=== PATIENT | male | born 1955 | race Caucasian/White ===

== ENCOUNTER 2024-09-15 01:00 | Emergency (ER) | payer SELFPAY ==
[~2024-09-15] VITALS: Ht 187.9 cm; Wt 99.8 kg
[2024-09-15] MEDS ORDERED: TICAGRELOR 90 MG TABLET PO ONE (01:05)
[2024-09-15] MEDS ORDERED: HEPARIN SODIUM 250 ML IV SCH (01:05)
[2024-09-15 01:19] LABS: HEMATOCRIT 48.2 % (42.0-52.0); MANUAL DIFF REFLEX YES; MEAN CELL VOLUME 93.6 fl (80.0-94.0); MEAN CORPUSCULAR HGB 32.2 pg (27.0-31.0); MEAN CORPUSCULAR HGB CONC 34.4 g/dl (33.0-37.0); MEAN PLATELET VOLUME 10.9 fl (9.6-12.3); PLATELET COUNT AUTOMATED 246 10*3/uL (130-400); RED BLOOD COUNT 5.15 10*6/uL (4.50-5.90); RED CELL DISTRI WIDTH 13.8 % (0-14.5); WHITE BLOOD COUNT 17.2 10*3/uL (4.8-10.8)
[2024-09-15 01:35] LABS: ALKALINE PHOSPHATASE 101 U/L (46-116); BUN 18 mg/dl (9-23); CHLORIDE 106 mmol/L (98-107); POTASSIUM 3.2 mmol/L (3.4-5.1); SGPT/ALT 20 U/L (5-49); TOTAL PROTEIN 7.2 gm/dL (6.0-8.0)
[2024-09-15 01:46] LABS: ATYPICAL LYMPHS 6 % (0-0); TOTAL CELLS COUNTED 100 #CELLS
[2024-09-15 01:47] LABS: PLATELET SUFFICIENCY NORMAL (NORMAL)
== END 2024-09-15 01:40 | disposition short-term general hospital (02) ==
LOC: ED 01:00
PROVIDERS: Internal Medicine
DX: I21.3 ST elevation (STEMI) myocardial infarction of unspecified site (principal); R11.0 Nausea; R06.02 Shortness of breath; R61 Generalized hyperhidrosis; I10 Essential (primary) hypertension

== ENCOUNTER 2025-10-17 10:50 | Emergency (ER) | payer MEDICARE, OTHER ==
[~2025-10-17] VITALS: Ht 190.5 cm; Wt 101.4 kg
[2025-10-17] MEDS ORDERED: IOHEXOL 350 MG/ML 100 ML VIAL IV ONE ×2 (11:10→11:32)
[2025-10-17] MEDS ORDERED: SODIUM CHLORIDE 0.9% 100 ML BAG IV ONE (11:10)
[2025-10-17 11:16] LABS: BASO # 0.1 10*3/uL (0.0-0.1); BASO % 0.8 % (0.0-1.0); EOS # 0.4 10*3/uL (0.0-0.4); EOS % 4.6 % (1.0-4.0); MEAN CELL VOLUME 91.8 fl (80.0-94.0); MEAN CORPUSCULAR HGB 30.7 pg (27.0-31.0); MEAN PLATELET VOLUME 10.8 fl (9.6-12.3); MONO # 0.7 10*3/uL (0.1-1.0); MONO % 8.2 % (3.0-9.0); NEUT # 5.6 10*3/uL (2.3-7.9); NEUT % 67.9 % (47.0-73.0); NUCLEATED RED BLOOD CELL 0.0 % (0.0-0.0); NUCLEATED RED BLOOD CELL 0.0 10*3/uL (0.0-0.0); PLATELET COUNT AUTOMATED 190 10*3/uL (130-400); RED CELL DISTRI WIDTH 14.2 % (0-14.5)
[2025-10-17 11:29] LABS: ACT PARTIAL THROMBO TIME 28.8 SECONDS (20.0-32.1)
[2025-10-17] MEDS ORDERED: SODIUM CHLORIDE 0.9% 100 ML IV ONE (11:32)
[2025-10-17 11:37] LABS: BUN 11 mg/dl (9-23); SGPT/ALT 18 U/L (5-49)
[2025-10-17] MEDS ORDERED: CLOPIDOGREL75 MG PO (12:10)
[2025-10-17] MEDS ORDERED: ATORVASTATIN CA80 M1 PO (12:10)
[2025-10-17] MEDS ORDERED: FEXOFENADINE H180 M1 PO (12:10)
[2025-10-17] MEDS ORDERED: DULOXETINE HCL60 MG PO (12:10)
[2025-10-17] MEDS ORDERED: DOXYCYCLINE HY100 M3 PO (12:10)
[2025-10-17] MEDS ORDERED: AMIODARONE HYD200 MG PO (12:11)
[2025-10-17] MEDS ORDERED: TAMSULOSIN HCL0.4 MG PO (12:11)
[2025-10-17] MEDS ORDERED: ASPIRIN ADULT L81 M2 PO (12:11)
[2025-10-17] MEDS ORDERED: ESCITALOPRAM OXA5 MG PO (12:11)
[2025-10-17] MEDS ORDERED: LEVETIRACETAM500 MG PO (12:11)
[2025-10-17] MEDS ORDERED: OMEPRAZOLE MAGN20 MG PO (12:12)
[2025-10-17 12:53] LABS: BILIRUBIN Negative (Negative); BLOOD Negative (Negative); CLARITY Clear (Clear); COLOR Yellow (Yellow); KETONE Negative (Negative); LEUKO ESTERASE Negative (Negative); NITRITE Negative (Negative); PH 6.5 (4.5-8.0); SPECIFIC GRAVITY >= 1.030 (1.001-1.030); UROBILINOGEN 1.0 E.U./dl (0.0-1.0)
[2025-10-17 13:10] LABS: MUCOUS 1+; RBC 0-2 rbc/hpf (0-2)
[2025-10-17 13:11] LABS: BACTERIA TRACE
[2025-10-17] MEDS ORDERED: Clopidogrel Hydrogen Sulfate 75 MG TAB PO ONE (13:40)
[2025-10-17] MEDS ORDERED: ASPIRIN ENTERIC COATED 81 MG TAB PO ONE (13:40)
[2025-10-17] MEDS ORDERED: POTASSIUM CHLORIDE IN WATER 100 ML IV SCH (14:00)
== END 2025-10-17 16:14 | disposition short-term general hospital (02) ==
LOC: ED 10:50
PROVIDERS: Internal Medicine
DX: I63.9 Cerebral infarction, unspecified (principal); I10 Essential (primary) hypertension; I25.2 Old myocardial infarction; Z86.73 Personal history of transient ischemic attack (TIA), and cerebral infarction without residual deficits